=== PATIENT | male | born 2000 | race Caucasian/White ===

== ENCOUNTER → 2020-01-29 | Emergency (ER) | payer SELFPAY ==
[~2020-01-29] MED LIST: KETOROLAC 15 MG/ML VIAL ONE; PANTOPRAZOLE 40 MG TABEC PO ONE
== END | disposition home or self-care (01) ==
LOC: CANPREER → MED 00:32
DX: Z53.21 Procedure and treatment not carried out due to patient leaving prior to being seen by health care provider (principal)
CPT/HCPCS: J1885